=== PATIENT | female | born 1995 | race Caucasian/White ===

== ENCOUNTER 2023-08-21 09:54 | Emergency (ER) | payer BC, SELFPAY ==
[2023-08-21 10:11] VITALS: BP 127/99
[2023-08-21 10:46] LABS: Urine Albumin Trace (Neg - Trace); Urine Bilirubin Negative (Negative); Urine Character Clear (Clear); Urine Glucose Negative (Negative); Urine Ketone Negative (Negative); Urine Leukocyte 1+ (Negative); Urine Nitrite Negative (Negative); Urine Occult Blood Trace (Negative); Urine Specific Gravity 1.015 (<1.030); Urine Urobilinogen Negative (Neg - 1+)
[2023-08-21 10:48] LABS: Urine Color Yellow
[2023-08-21 11:07] LABS: Urine Amorphous Seen; Urine Mucus Few; Urine Squamous Cell >30 /LPF (Few)
[2023-08-21 11:08] LABS: Urine Bacteria Moderate (Negative)
--- NOTE | 2023-08-21 11:36 | ED.GENMED ---
History of Present Illness
General
Chief Complaint: Flank Pain
Time Seen by Provider: 08/21/23 11:14
Travel History
Have you had any contact with someone who has COVID-19?: No
Do you have any symptoms of coronavirus? Fever > 100 degrees, chills, cough, shortness of breath, sore throat, loss of taste or smell, muscle aches, or headache?: No
History of Present Illness
History of Present Illness:
28-year-old female with no significant past medical history presents to the emergency department for evaluation of acute onset of right flank pain developing this morning approxi-1 hour prior to arrival. Pain is sharp in nature, radiates from the
right flank to the right pelvis. Reports urinary urgency with no dysuria. Denies any associated fevers or chills.
Review of Systems
Review of Systems
Allergies reviewed?: Yes
All Other Systems: ROS reviewed and negative except as documented in HPI and ROS
Phy Exam
Physical Exam
Physical Exam:
GEN: Visibly uncomfortable, writhing in pain
HEENT: Oral mucosa moist, no scleral icterus
Cardiac: Regular rate
Lung: No respiratory distress, no tachypnea
MSK: No gross deformity or injuries
Skin: Good color, no pallor or jaundice, no rashes
Neuro: AO x3, moves all extremities freely
Psych: Calm, cooperative
Course
Orders/Labs/Results
Orders:
Orders
08/21/23 10:36
Urinalysis Reflex To Culture Urgent
Date Specimen was Collected: 08/21/23
Time Specimen was Collected: 10:15
Urine Microscopic Reflex Cult Urgent
Urine Culture Urgent
YARIEL Source: U
Specimen Description:
Date Specimen was Collected: 08/21/23
Time Specimen was Collected: 10:15
08/21/23 11:36
CT Abd/pel Without Iv Or Oral Urgent
Comment:
Reason For Exam: R flank pain
Ketorolac [Toradol] 15 mg IV NOW STA
Ondansetron Injectable [Zofran] 4 mg IV NOW STA
Test Result ONCE
08/21/23 11:38
Complete Blood Count/With Diff Urgent
Comprehensive Metabolic Panel Urgent
HCG, Serum Qualitative Screen Urgent
Abnormal Lab Results
08/21/23 08/21/23
10:36 11:38
Absolute Neuts (auto) 8.5 H 10^3/uL
(1.4-6.5)
Absolute Monos (auto) 0.7 H 10^3/uL
(0.1-0.6)
Neutrophils % 78.9 H %
(42.2-75.2)
Lymphocytes % 13.6 L %
(20.5-51.1)
Chloride 108 H mmol/L
(98-107)
Glucose 133 H mg/dl
(70-99)
Ur Occult Blood Reflex Trace A
(Negative)
Leukocyte Esterase Rfl 1+ A
(Negative)
Urine RBC 3-6 A /HPF
(0-2)
Urine Bacteria (Reflex) Moderate A
(Negative)
08/21/23 11:38
08/21/23 11:38
Vital Signs
Initial and Last Documented VS:
Initial Vital Signs
Temp Pulse Resp BP Pulse Ox
97.5 F 71 16 127/99 99
08/21/23 10:11 08/21/23 10:11 08/21/23 10:11 08/21/23 10:11 08/21/23 10:11
Last Documented Vital Signs
Temp Pulse Resp BP Pulse Ox
97.5 F 68 16 118/76 99
08/21/23 10:11 08/21/23 13:54 08/21/23 13:54 08/21/23 13:54 08/21/23 13:54
MDM/Problems Addressed
MDM/Problems Addressed:
2 mm UVJ stone seen on CT. Urinalysis not consistent with UTI. Patient's pain significantly improved after IV Toradol and fluids. Discussed expectant management with patient, no indication for antibiotics
*Critical Care Note
Total Time (30-74mins, 75-104mins- exclusive of procedures): Not Applicable
ED Attending Note
-
Portions of this chart may have been created with voice recognition software.� Occasional wrong word or��sound alike� substitutions may have occurred due to the inherent limitations of voice recognition software.
Discharge Plan
Departure
Patient Disposition: Home (Routine Discharge)
Date of Disposition: 08/21/23
Time of Disposition: 14:29
Patient with high blood pressure during this ER visit?: No
Discharge Problem:
Ureterolithiasis
Instructions: Kidney Stones (DC), How to Strain Your Urine
Prescriptions:
New
ketorolac 10 mg tablet
10 mg PO Q8H PRN (Reason: Pain) Qty: 10 0RF
Rx Instructions:
maximum total duration of 5 days from all oral, intranasal, or parenteral formulations
oxycodone 5 mg tablet
5 mg PO Q8H PRN (Reason: Pain) Qty: 6 0RF
No Action
Metronidazole Vaginal
1 dose VAG HS
Multivitamin
1 tab PO DAILY
Norgestimate-Ethinyl Estradiol
1 tab PO DAILY
Vitamin D
1 tab PO DAILY
Referrals:
Rica Proctor MD [Family Provider] -
Activity Restrictions/Additional Instructions:
Return if you develop a fever or vomiting
Interventions
Interventions:
*Risk Screen - Suicide Last Done: 08/21/23 10:13
*General Assessment Last Done: 08/21/23 10:13
*Neglect/Abuse Screening Last Done: 08/21/23 10:13
ED- Fall Risk Assessment Last Done: 08/21/23 11:04
*ED COVID-19 Vaccine History Last Done: 08/21/23 11:04
*Nursing Disposition Last Done: 08/21/23 14:35
XK-Coavav-Zublunlarq Assessment Last Done: 08/21/23 12:03
ED-Female Genitourinary Assessment Last Done: 08/21/23 12:03
Discharge Date and Time
Discharge Date/Time: 08/21/23 14:35
[2023-08-21] MEDS: TORADOL 15 MG IV (11:40)
[2023-08-21] MEDS: ZOFRAN 4 MG IV (11:40)
[2023-08-21 11:52] LABS: % Basophils 0.5 % (0-2); % Eosinophils 0.4 % (0-6); % Immature Granulocytes 0.4 % (0-0.5); % Lymphocytes 13.6 % (20.5-51.1); % Monocytes 6.2 % (1.7-9.3); % Neutrophils 78.9 % (42.2-75.2); Absolute Basophils 0.1 10^3/uL (0-0.2); Absolute Lymphocytes 1.5 10^3/uL (1.2-3.4); Absolute Monocytes 0.7 10^3/uL (0.1-0.6); Absolute Neutrophils 8.5 10^3/uL (1.4-6.5); Hemoglobin 13.5 g/dL (12.0-16.0); Mean Corp Hgb Conc. 34.6 g/dL (33.0-37.0); Mean Corpuscular Hgb 29.7 pg (27.0-31.0); Mean Corpuscular Volume 85.9 fL (81.0-99.0); Mean Platelet Volume 10.4 fL (7.4-10.4); Nucleated Red Blood Cells % 0 %; Platelet Count 267 10^3/uL (130-400); Red Blood Cell Count 4.54 10^6/uL (4.20-5.40); Red Cell Dist. Width 12.3 % (11.5-14.5); White Blood Cell Count 10.8 10^3/uL (4.8-10.8)
[2023-08-21 12:04] LABS: HCG, Serum Qualitative Screen Negative
[2023-08-21 12:06] LABS: ALT (SGPT) 28 U/L (0-35); AST (SGOT) 31 U/L (14-36); Albumin 4.3 g/dl (3.5-5.0); Alkaline Phosphatase 84 U/L (38-126); Blood Urea Nitrogen 13 mg/dl (7-17); Carbon Dioxide 22 mmol/L (22-30); Chloride 108 mmol/L (98-107); Glucose 133 mg/dl (70-99); Sodium 135 mmol/L (135-145); Total Bilirubin 0.6 mg/dl (0.2-1.3); eGFR > 60.00
[2023-08-21 13:54] VITALS: BP 118/76
== END 2023-08-21 14:35 | disposition home or self-care (01) ==
LOC: EMR 09:54
PROVIDERS: Physician Assistant; EMERGENCY PHYSICIAN Emergency Medicine; FAMILY PHYSICIAN Family Medicine
DX: N20.1 Calculus of ureter (principal)
CPT/HCPCS: 99284; 96374; 96375; 74176; 80053; 81003; 81015; 84703; 85025; 87086